=== PATIENT | male | born 1940 | race Caucasian/White ===

== ENCOUNTER 2024-02-18 01:27 | Inpatient (IN) | payer MEDICARE, BC ==
[2024-02-18] MEDS ORDERED: Sodium Chloride 0.9% 10 ML Syringe FLUSH PRN (03:00)
[2024-02-18 03:25] LABS: BASOPHILS PERCENT AUTO 0.2 % (0.0-1.0); EOSINOPHILS ABSOLUTE AUTO 0.1 K/mm3 (0.0-0.4); EOSINOPHILS PERCENT AUTO 1.3 % (0.0-6.0); HEMATOCRIT 33.7 % (42.0-52.0); HEMOGLOBIN 11.5 gm/dl (14.0-18.0); IMMATURE GRAN ABSOLUTE AUTO 0.03 K/mm3 (0.00-0.05); IMMATURE GRAN PERCENT AUTO 0.3 % (0.0-0.4); LYMPHOCYTES PERCENT AUTO 10.4 % (24.0-44.0); MEAN CORPUSCULAR HEMOGLOBIN 32.3 pg (28.0-32.0); MEAN CORPUSCULAR HGB CONC 34.1 g/dl (32.0-36.0); MEAN CORPUSCULAR VOLUME 94.7 fl (83.0-99.0); MEAN PLATELET VOLUME 8.9 fl (9.4-12.4); MONOCYTES ABSOLUTE AUTO 0.6 K/mm3 (0.0-0.8); MONOCYTES PERCENT AUTO 6.9 % (0.0-8.0); NEUTROPHILS ABSOLUTE AUTO 7.6 K/mm3 (1.8-7.7); NEUTROPHILS PERCENT AUTO 80.9 % (41.0-71.0); PLATELET COUNT,PLT 217 K/mm3 (150-400); RED BLOOD CELL COUNT 3.56 M/mm3 (4.52-5.90); WHITE BLOOD CELL COUNT,WBC 9.34 K/mm3 (3.9-11.3)
[2024-02-18] MEDS ORDERED: Naloxone 0.4 MG/ML SDV IVPUSH PRN (03:45)
[2024-02-18] MEDS: Morphine 2 MG/ML SYRINGE IVPUSH ONE (03:51)
[2024-02-18 04:02] LABS: A/G RATIO 1.2 (1-2); ALBUMIN 3.7 g/dl (3.4-5.0); ANION GAP 13.5 (5-15); BILIRUBIN TOTAL 0.7 mg/dL (0.2-1.0); BUN/CREATININE RATIO 17.1 (14-18); C-REACTIVE PROTEIN 0.42 mg/dL (<0.30); CALCIUM 8.7 mg/dL (8.5-10.1); CREATININE 3.4 mg/dL (0.7-1.3); EST CRCL DRUG DOSING (CG) 16.4 mL/min; MAGNESIUM 1.9 mg/dL (1.8-2.4); POTASSIUM,K 5.5 mEq/L (3.5-5.1); PROTEIN TOTAL,TP 6.7 g/dl (6.4-8.2)
[2024-02-18 04:39] LABS: APPEARANCE,URINE CLEAR (Clear); BILIRUBIN,URINE NEGATIVE (Negative); COLOR,URINE YELLOW (Yellow); GLUCOSE,URINE NEGATIVE (Negative); KETONES,URINE NEGATIVE (Negative); LEUKOCYTE ESTERASE,URINE NEGATIVE (Negative); NITRITE,URINE NEGATIVE (Negative); OCCULT BLOOD,URINE TRACE-LYSED (Negative); PROTEIN,URINE 1+ (Negative); UROBILINOGEN,URINE 0.2 (0.2-1.0)
[2024-02-18 04:47] LABS: EPITHELIAL CELLS,URINE 0-5 /hpf (0-5); RBC,URINE 0-5 /hpf (0-5); WBC,URINE 0-5 /hpf (0-5)
[2024-02-18 04:48] LABS: BACTERIA,URINE FEW /hpf (FEW); MUCUS,URINE NOT SEEN /hpf (FEW)
[2024-02-18] MEDS: Sodium Chloride 0.9% 1,000 ML IV ONE (05:30)
[2024-02-18] MEDS: Morphine 2 MG/ML SYRINGE IVPUSH PRN (06:45)
[2024-02-18] MEDS: Insulin Regular, Human 100 Units/ML 10 ML Vial SUBCUT ONE (08:12)
[2024-02-18] MEDS: 50% Dextrose in Water 50 ML SDV IV ONE (08:20)
[2024-02-18] MEDS: 50% Dextrose in Water 50 ML Syringe ONE (08:20)
[2024-02-18] MEDS: 50% Dextrose in Water 50 ML Syringe IVPUSH ONE (08:20)
[2024-02-18] MEDS: Acetaminophen 325 MG Tab PO SCH (08:41)
[2024-02-18] MEDS: Benzocaine 20% Topical Spray UD MUCMEM ONE (09:46)
[2024-02-18] MEDS: Sodium Chloride 0.9% 1,000 ML IV SCH (09:46)
[2024-02-18] MEDS: HYDROmorphone 0.5 MG/0.5 ML Syringe IVPUSH PRN (09:46)
[2024-02-18] MEDS: Diatrizoate Meglumine/Diatrizoate Sodium 37% 120 ML Bottle PO ONE (12:04)
[2024-02-18] MEDS: Ondansetron 4 MG/2 ML SDV IV PRN (12:29)
[2024-02-18 15:44] LABS: ANION GAP 13.6 (5-15); BUN/CREATININE RATIO 15.8 (14-18); CALCIUM 8.8 mg/dL (8.5-10.1); CREATININE 3.3 mg/dL (0.7-1.3); EST CRCL DRUG DOSING (CG) 16.9 mL/min; POTASSIUM,K 4.6 mEq/L (3.5-5.1)
[2024-02-18] MEDS: Dextrose 5%-0.45% NaCl 1,000 ML IV SCH (19:23)
[2024-02-18] MEDS: Heparin Sodium 5,000 Units/ML Vial IVPUSH ONE (19:55)
[2024-02-18] MEDS: Heparin Sodium/D5W 25,000 UNITS/500 ML BAG IV SCH (19:57)
[2024-02-19 02:01] LABS: BASOPHILS PERCENT AUTO 0.3 % (0.0-1.0); EOSINOPHILS ABSOLUTE AUTO 0.2 K/mm3 (0.0-0.4); EOSINOPHILS PERCENT AUTO 2.4 % (0.0-6.0); HEMATOCRIT 34.3 % (42.0-52.0); HEMOGLOBIN 11.5 gm/dl (14.0-18.0); IMMATURE GRAN ABSOLUTE AUTO 0.02 K/mm3 (0.00-0.05); IMMATURE GRAN PERCENT AUTO 0.3 % (0.0-0.4); LYMPHOCYTES ABSOLUTE AUTO 1.1 K/mm3 (1.0-4.8); LYMPHOCYTES PERCENT AUTO 14.3 % (24.0-44.0); MEAN CORPUSCULAR HEMOGLOBIN 31.9 pg (28.0-32.0); MEAN CORPUSCULAR HGB CONC 33.5 g/dl (32.0-36.0); MEAN CORPUSCULAR VOLUME 95.3 fl (83.0-99.0); MEAN PLATELET VOLUME 9.2 fl (9.4-12.4); MONOCYTES ABSOLUTE AUTO 0.8 K/mm3 (0.0-0.8); MONOCYTES PERCENT AUTO 9.7 % (0.0-8.0); NEUTROPHILS ABSOLUTE AUTO 5.8 K/mm3 (1.8-7.7); PLATELET COUNT,PLT 197 K/mm3 (150-400); WHITE BLOOD CELL COUNT,WBC 7.96 K/mm3 (3.9-11.3)
[2024-02-19 02:34] LABS: ANION GAP 11.7 (5-15); BUN/CREATININE RATIO 15.2 (14-18); CALCIUM 8.2 mg/dL (8.5-10.1); CREATININE 3.3 mg/dL (0.7-1.3); EST CRCL DRUG DOSING (CG) 16.9 mL/min; POTASSIUM,K 4.7 mEq/L (3.5-5.1)
[2024-02-19] MEDS: Diphenhydramine/Lidocaine/MagAl/Simethicone 119 ML Bottle PO PRN (18:20)
[2024-02-19] MEDS: Benzocaine/Cetylpyridinium/Menthol Lozenge MUCMEM PRN ×2 (18:55→20:21)
[2024-02-20] MEDS: LORazepam 2 MG/ML SDV IVPUSH PRN (02:49)
[2024-02-20 05:07] LABS: BASOPHILS PERCENT AUTO 0.2 % (0.0-1.0); EOSINOPHILS ABSOLUTE AUTO 0.1 K/mm3 (0.0-0.4); EOSINOPHILS PERCENT AUTO 1.3 % (0.0-6.0); HEMATOCRIT 33.3 % (42.0-52.0); HEMOGLOBIN 11.4 gm/dl (14.0-18.0); IMMATURE GRAN ABSOLUTE AUTO 0.03 K/mm3 (0.00-0.05); IMMATURE GRAN PERCENT AUTO 0.3 % (0.0-0.4); LYMPHOCYTES ABSOLUTE AUTO 1.2 K/mm3 (1.0-4.8); LYMPHOCYTES PERCENT AUTO 10.5 % (24.0-44.0); MEAN CORPUSCULAR HEMOGLOBIN 31.8 pg (28.0-32.0); MEAN CORPUSCULAR HGB CONC 34.2 g/dl (32.0-36.0); MEAN PLATELET VOLUME 9.6 fl (9.4-12.4); NEUTROPHILS ABSOLUTE AUTO 8.7 K/mm3 (1.8-7.7); NEUTROPHILS PERCENT AUTO 78.7 % (41.0-71.0); PLATELET COUNT,PLT 213 K/mm3 (150-400); RED BLOOD CELL COUNT 3.58 M/mm3 (4.52-5.90); WHITE BLOOD CELL COUNT,WBC 11.03 K/mm3 (3.9-11.3)
[2024-02-20 05:25] LABS: ANION GAP 14.4 (5-15); BUN/CREATININE RATIO 13.5 (14-18); CALCIUM 8.4 mg/dL (8.5-10.1); CREATININE 3.1 mg/dL (0.7-1.3); EST CRCL DRUG DOSING (CG) 17.99 mL/min; POTASSIUM,K 4.4 mEq/L (3.5-5.1)
[2024-02-20] MEDS: Albuterol/Ipratropium 3.0-0.5 MG/3 ML Neb Soln NEB PRN (09:54)
[2024-02-20] MEDS ORDERED: Sodium Chloride 0.9% 1,000 ML IV SCH (10:00)
[2024-02-20] MEDS: Sodium Chloride 0.65% Nasal Spray 45 ML Bottle NAS SCH (10:51)
[2024-02-20 11:07] LABS: CORONAVIRUS COVID-19 NAA NEGATIVE (NEGATIVE); INFLUENZA A NAA NEGATIVE (NEGATIVE); RESPIRATORY SYNCYTIAL VIR NAA NEGATIVE (NEGATIVE)
[2024-02-20] MEDS ORDERED: hydrOXYzine HCl 25 MG Tab PO PRN (18:57)
[2024-02-20] MEDS: Apixaban 5 MG Tab PO SCH (20:04)
[2024-02-21 05:25] LABS: ANION GAP 16.3 (5-15); BUN/CREATININE RATIO 12.2 (14-18); CALCIUM 8.3 mg/dL (8.5-10.1); CREATININE 3.6 mg/dL (0.7-1.3); EST CRCL DRUG DOSING (CG) 15.49 mL/min; POTASSIUM,K 4.3 mEq/L (3.5-5.1)
== END 2024-02-21 14:08 | disposition home or self-care (01) | DRG 388 ==
LOC: JD.ED 01:27 → JD.ICU 05:15
PROVIDERS: ADMIT Family Medicine; ATTEND Family Medicine
PROC: 0D9670Z Drainage of Stomach with Drainage Device, Via Natural or Artificial Opening (ICD-10-PCS; principal; 2024-02-18)
DX: K56.609 Unspecified intestinal obstruction, unspecified as to partial versus complete obstruction (principal); K56.50 Intestinal adhesions [bands], unspecified as to partial versus complete obstruction; Z90.49 Acquired absence of other specified parts of digestive tract; G92.8 Other toxic encephalopathy; F05 Delirium due to known physiological condition; I82.502 Chronic embolism and thrombosis of unspecified deep veins of left lower extremity; N17.9 Acute kidney failure, unspecified; N18.5 Chronic kidney disease, stage 5; H91.90 Unspecified hearing loss, unspecified ear; H54.7 Unspecified visual loss; K21.9 Gastro-esophageal reflux disease without esophagitis; F32.A Depression, unspecified; Z96.659 Presence of unspecified artificial knee joint; E87.5 Hyperkalemia; Z98.890 Other specified postprocedural states; Z79.01 Long term (current) use of anticoagulants; Z79.899 Other long term (current) drug therapy
CPT/HCPCS: 0241U; 36415; 70450; 74018; 74019; 74176; 74250; 80048; 80053; 81001; 82550; 82947; 83735; 84443; 85025; 85730; 86140; 93005; 93970; 94640; 96374; 97110; 97161; 99285; A9270-GY; J1170; J1644; J1815-GY; J2060; J2270; J2405; J3490; J7030; J7620-GY; J7799; Q9963